=== PATIENT | male | born 1990 | race Caucasian/White ===

== ENCOUNTER 2017-12-22 07:50 | Emergency (ER) | payer BC ==
[2017-12-22 07:55] VITALS: RESP 18
--- NOTE | 2017-12-22 08:05 | ED ---
ENT HPI - General Chief complaint: ENT Stated complaint: Jaw pain Time Seen by Provider: 12/22/17 08:00 Source: patient, RN notes reviewed Mode of arrival: ambulatory Limitations: no limitations - History of Present Illness Initial comments: 27-year-old male presents emergency Department with chief complaint of right- sided jaw pain. Patient states around 10:00 last night he opened up and felt his jaw pop. He states that he now feels that his teeth are not aligned properly. Patient states his pain around his right TMJ region. Patient has any clicking, popping. He did have braces when he was younger along with oral surgery for wisdom teeth. Patient denies any other corrective surgeries states he is able to fully open his mouth at this time. - Related Data Previous Rx's Medication Instructions Recorded Ibuprofen [Motrin] 600 mg PO Q8HR PRN #30 tab 12/22/17 Allergies Allergy/AdvReac Type Severity Reaction Status Date / Time No Known Allergies Allergy Verified 12/22/17 07:55 Review of Systems ROS Statement: Those systems with pertinent positive or pertinent negative responses have been documented in the HPI. ROS Other: All systems not noted in ROS Statement are negative. Past Medical History Past Medical History: No Reported History History of Any Multi-Drug Resistant Organisms: None Reported Additional Past Surgical History / Comment(s): wisdom teeth removal Past Psychological History: No Psychological Hx Reported Smoking Status: Current every day smoker Past Alcohol Use History: Occasional Past Drug Use History: None Reported General Exam Limitations: no limitations General appearance: alert, in no apparent distress Head exam: Present: atraumatic, normocephalic, normal inspection Eye exam: Present: normal appearance, PERRL, EOMI. Absent: scleral icterus, conjunctival injection, periorbital swelling ENT exam: Present: normal exam, normal oropharynx, mucous membranes moist, TM's normal bilaterally, normal external ear exam, other (Alignment of teeth appear to be normal, no clicking or popping at the TMJ region there is no tenderness the right or left TMJ) Neck exam: Present: normal inspection, full ROM. Absent: tenderness, meningismus, lymphadenopathy Respiratory exam: Present: normal lung sounds bilaterally. Absent: respiratory distress, wheezes, rales, rhonchi, stridor Cardiovascular Exam: Present: regular rate, normal rhythm, normal heart sounds. Absent: systolic murmur, diastolic murmur, rubs, gallop, clicks Course Vital Signs 12/22/17 07:51 Temperature 97.6 F Pulse Rate 89 Respiratory 18 Rate Blood Pressure 138/95 O2 Sat by Pulse 100 Oximetry Medical Decision Making - Medical Decision Making 27-year-old male presented to emergency department for right-sided jaw pain. X- ray of the mandible were obtained there no acute findings. Patient has TMJ pain in the right. He is advised take anti-inflammatories and follow-up with the dentist at the beginning of this week. Return parameters were discussed. - Radiology Data Radiology results: report reviewed, image reviewed X-ray mandible no acute findings Disposition Clinical Impression: Temporomandibular joint (TMJ) pain Disposition: HOME SELF-CARE Condition: Stable Instructions: Temporomandibular Disorder (ED) Additional Instructions: Please return to the Emergency Department if symptoms worsen or any other concerns. Prescriptions: Ibuprofen [Motrin] 600 mg PO Q8HR PRN #30 tab PRN Reason: Pain Is patient prescribed a controlled substance at d/c from ED?: No Referrals: Norman Gómez DDS [STAFF PHYSICIAN] - 1-2 days Time of Disposition: 09:01
--- NOTE | 2017-12-22 08:54 | XR ---
EXAMINATION TYPE: XR mandible complete , 5 VIEWS DATE OF EXAM ORDERED: 12/22/2017 HISTORY: Pain. COMPARISON: None. FINDINGS: There is a prosthetic incisor in the right upper mandible. No fracture, dislocation or oth er bony destructive lesion is seen. IMPRESSION: NO ACUTE OSSEOUS LESION.
[2017-12-22 09:19] VITALS: BP 128/74; PULSE 85; TEMP 97.9
== END 2017-12-22 09:11 | disposition home or self-care (01) ==
LOC: EC 07:50
DX: M26.621 Arthralgia of right temporomandibular joint (principal); F17.200 Nicotine dependence, unspecified, uncomplicated
CPT/HCPCS: 70110; 99283

== ENCOUNTER → 2018-02-12 | Outpatient (CLI) | payer BC ==
--- NOTE | 2018-02-12 07:33 | US ---
EXAMINATION TYPE: US abdomen complete DATE OF EXAM: 02/12/2018 COMPARISON: NONE CLINICAL HISTORY: LUQ Pain R10.13. epigastric pain x 2 days, better now EXAM MEASUREMENTS: Liver Length: 17.7 cm Gallbladder Wall: 0.2 cm CBD: 0.5 cm Spleen: 11.3 cm Right Kidney: 10.7 x 4.1 x 5.5 cm Left Kidney: 11.6 x 5.6 x 5.2 cm Pancreas: Obscured by bowel gas Liver: There is increased echogenicity of the hepatic parenchyma with diminished visualization of th e portal triads most commonly relating to hepatic steatosis and limiting evaluation for underlying he patic masses. Gallbladder: wnl Evidence for sonographic Cabrera's sign: no CBD: wnl Spleen: wnl Right Kidney: wnl Left Kidney: wnl Upper IVC: wnl Abd Aorta: Nonvisualized due to overlying bowel gas The intrahepatic portion of the IVC and proximal abdominal aorta are within normal limits. There is no evidence of cholelithiasis. Common bile duct is unremarkable. The visualized portions of the berman creas are homogenous. The spleen is unremarkable. Kidneys are symmetric and free of hydronephrosis. No renal lesions are seen. IMPRESSION: 1. Sonographic findings most commonly related to hepatic steatosis, overall appearing mild in degree. Correlate with liver function tests. 2. No sonographic evidence of cholelithiasis or acute cholecystitis.
== END ==
LOC: RADUSWWP 07:07
PROVIDERS: ATTEND Family Medicine
DX: R10.13 Epigastric pain (principal)
CPT/HCPCS: 76700